=== PATIENT | male | born 1995 | race Asian ===

== ENCOUNTER 2021-07-24 21:31 | Emergency (ER) | payer OTHER ==
[~2021-07-24] VITALS: Ht 167.6 cm; Wt 65.9 kg
[2021-07-24 21:32] VITALS: BP 129/80
[2021-07-24] MEDS ORDERED: ACETAMINOPHEN TAB 650MG DOSE (2X325MG) PO ONE (21:40)
[2021-07-24] MEDS ORDERED: LIDO2SOL9 PO (22:32)
[2021-07-24] MEDS ORDERED: LIDOCAINE VISCOUS 2% SOLN 15ML UDC SS ONE (22:35)
== END 2021-07-24 22:59 | disposition home or self-care (01) ==
LOC: M ED 21:31
DX: U07.1 COVID-19 (principal)